=== PATIENT | female | born 1970 | race Caucasian/White ===

== ENCOUNTER → 2019-05-13 | Outpatient (CLI) | payer BC ==
--- NOTE | 2019-05-13 16:35 | MR ---
EXAMINATION TYPE: MR cervical spine wo/w con DATE OF EXAM: 05/13/2019 COMPARISON: HISTORY: Neck pain,headaches, numbness lt arm CONTRAST: Performed utilizing 5 mL intravenous Gadavist gadolinium contrast. TECHNIQUE: Multiplanar multiecho imaging on a 3.0 Ligia magnet is performed through the cervical spin e. Some motion artifact is evident. FINDINGS: The craniovertebral junction is normal. Vertebral body alignment is normal. Disc heights appear preserved. There may be some mild disc desiccation present. Vertebral body heights are preser lawson. C7-T1: No focal disc herniation or significant disc bulge is evident. No spinal canal stenosis or n eural foraminal stenosis is present. C6-7: There is a broad-based disc herniation with mild anterior thecal sac compression. No cord conta ct is evident. No spinal canal stenosis or neural foraminal stenosis is present.. C5-6: Broad-based disc bulge is present with anterior thecal sac contact. No spinal canal stenosis pr esent. Right uncovertebral joint hypertrophy is present with moderate right foraminal stenosis. C4-5: No focal disc herniation or significant disc bulge is evident. No spinal canal stenosis or eloy ral foraminal stenosis is present. C3-4: No focal disc herniation or significant disc bulge is evident. No spinal canal stenosis or eloy ral foraminal stenosis is present. C2-3: No focal disc herniation or significant disc bulge is evident. No spinal canal stenosis or eloy ral foraminal stenosis is present. No abnormal enhancement is evident. IMPRESSIONS: 1. Broad-based disc herniation C6-7 with mild anterior thecal sac compression. 2. Broad-based disc bulge C5-6 with mild anterior thecal sac compression. 3. Uncovertebral joint hypertrophy on the right at C5-6 with moderate right foraminal stenosis.
== END | disposition home or self-care (01) ==
LOC: RADMRIMAIN 15:06 → MERGE 15:15
PROVIDERS: ATTEND Nurse Practitioner
DX: M48.02 Spinal stenosis, cervical region (principal); M50.222 Other cervical disc displacement at C5-C6 level; M53.82 Other specified dorsopathies, cervical region
CPT/HCPCS: 72156